=== PATIENT | male | born 1940 | race Caucasian/White ===

== ENCOUNTER 2021-03-16 08:46 | Outpatient (CLI) | payer MEDICARE, SELFPAY ==
--- NOTE | ~2021-03-16 | CT_ITS ---
EXAMINATION: CTA abdomen pelvis DATE: 03/16/2021 09:12 INDICATION: Abdominal aortic aneurysm repair TECHNIQUE: Computed tomography (CT) of the abdomen and pelvis was performed without intravenous contr ast. Automated exposure control and iterative reconstruction technique were employed. Exam dose: 850 .29 mGy-cm total exam DLP. COMPARISON: 03/07/2011 CT abdomen pelvis FINDINGS: There is focal atelectasis/consolidation in the posterior basilar segment of the left lower lobe and mild dependent right lower lobe atelectasis. Normal heart size. No pericardial or pleural effusion. The liver, gallbladder, bile ducts, pancreas, pancreatic duct and spleen are unremarkable. There is normal morphology of the adrenal glands. 1.5 cm lower pole left renal cyst. No urinary tract calculus or hydroureteronephrosis is evident. There is interval endovascular abdominal aorta biiliac graft since 03/07/2011. The abdominal aortic an eurysm measuring up to 4.3 cm compared to 4.6 cm on 03/07/2011. No evidence of abdominal aortic rupture or retroperitoneal fibrosis is noted. No intraperitoneal or retroperitoneal or pelvic mass lesion or adenopathy or ascites. Prostate enlargement and calcifications. There is moderate diffuse thickening of the urinary bladder wall, likely due to prostatomegaly. Innumerable diverticula of the sigmoid and descending colon with involvement of transverse and right colon as well; no CT evidence of diverticulitis. Normal appendix. No bowel obstruction, bowel wall thickening, pneumatosis or intraperitoneal free air. 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 Prominent degenerative change at the apophyseal joints . IMPRESSION: Status post endovascular abdominal aortic aneurysm repair with aortobiiliac graft; no ev idence of abdominal aortic rupture or retroperitoneal fibrosis 1.5 cm lower pole left renal cyst Diverticulosis of left and right colon; no CT evidence of diverticulitis Prostate enlargement and calcifications Focal left posterior basilar segment mild atelectasis/consolidation; minimal dependent atelectasis of the right lower lobe Reviewed, dictated and finalized at [facility] Reviewed, dictated and finalized at [facility]. WARE CLIENT ARCHITECT IMPRESSION: Status post endovascular abdominal aortic aneurysm repair with aor tobiiliac graft; no evidence of abdominal aortic rupture or retroperitoneal fib rosis 1.5 cm lower pole left renal cyst Diverticulosis of left and right colon; no CT evidence of diverticulitis Prostate enlargement and calcifications Focal left posterior basilar segment mild atelectasis/consolidation; minimal de pendent atelectasis of the right lower lobe
== END 2021-03-16 08:47 | disposition home or self-care (01) ==
PROVIDERS: PCP Internal Medicine
DX: I71.4 Abdominal aortic aneurysm, without rupture (principal); Z48.812 Encounter for surgical aftercare following surgery on the circulatory system; N28.1 Cyst of kidney, acquired; K57.30 Diverticulosis of large intestine without perforation or abscess without bleeding; N40.1 Benign prostatic hyperplasia with lower urinary tract symptoms
CPT/HCPCS: 74174; Q9967

== ENCOUNTER 2022-10-17 09:48 | Outpatient (CLI) | payer MEDICARE, SELFPAY ==
[2022-10-17 12:46] LABS: Alanine Aminotransferase 17 U/L (6-50); Albumin Level 4.4 g/dL (3.5-5.1); Alkaline Phosphatase 73 U/L (38-126); Anion Gap 9 mmol/L (8-16); Aspartate Amino Transferase 70 U/L (17-59); Bilirubin,Total 0.7 mg/dL (0.2-1.3); Blood Urea Nitrogen 31 mg/dL (9-20); Calcium 9.4 mg/dL (8.4-10.2); Carbon Dioxide 28 mmol/L (22-30); Chloride 103 mmol/L (98-107); Cholesterol 155 mg/dL (0-200); Estimated Glomerular Filt Rate 41; Glucose 94 mg/dL (65-110); HDL Direct 43 mg/dL; Potassium 4.7 mmol/L (3.4-5.0); Sodium 140 mmol/L (137-145); Triglycerides 108 mg/dL (<150)
[2022-10-17 12:57] LABS: LDL Cholesterol Direct 62 mg/dL
[2022-10-17 13:41] LABS: Hemoglobin A1C 5.5 % (<5.7)
== END 2022-10-17 09:49 | disposition home or self-care (01) ==
LOC: ANHWCLAB 09:49
PROVIDERS: PCP Nurse Practitioner Family; Visit Provider Nurse Practitioner
DX: E78.5 Hyperlipidemia, unspecified (principal); R73.03 Prediabetes
CPT/HCPCS: 36415; 80053; 80061; 83036

== ENCOUNTER 2022-12-17 13:51 | Outpatient (CLI) | payer MEDICARE, SELFPAY ==
--- NOTE | 2022-12-23 16:02 | WPDHOLTEREM ---
Holter/Event Monitor Holter/Event Monitor Date of procedure: 12/17/22 Holter/Event Procedure: 48 Hr Holter Monitor Indications: Dizziness Conclusion: 1. 48 hour holter monitor on 12/17/22. 2. Predominant rhythm is sinus rhythm. HR range 36-82 bpm; average HR 48 bpm. HR at 36 bpm was at 23:21. 3. There are 437 premature supraventricular complexes and 9 supraventricular couplets. There are 3 episodes of atrial tachycardia, fastest at 133 bpm and longest lasting 6 beats. 4. No premature ventricular complexes. No ventricular tachycardia. 5. No sinoatrial or atrioventricular blocks. No significant pauses greater than 2 seconds. 6. No symptoms available for correlation.
== END 2022-12-17 13:52 | disposition home or self-care (01) ==
LOC: ANHCARD 13:52
PROVIDERS: PCP Nurse Practitioner; Visit Provider Nurse Practitioner
DX: R42 Dizziness and giddiness (principal); I48.0 Paroxysmal atrial fibrillation
CPT/HCPCS: 93225; 93226

== ENCOUNTER 2023-04-28 11:27 | Outpatient (CLI) | payer MEDICARE, SELFPAY ==
[2023-04-28 13:02] LABS: Basophils Absolute Auto 0.1 K/mm3 (0.0-0.1); Basophils Percent Auto 0.6 % (0.2-1.2); Eosinophils Absolute Auto 0.1 K/mm3 (0-0.3); Eosinophils Percent Auto 0.8 % (0-4.4); Hematocrit 40.8 % (42.0-52.0); Hemoglobin 12.9 g/dL (14.0-18.0); Immature Granulocyte Absolute 0.02 K/mm3 (0.00-0.031); Immature Granulocyte Percent A 0.2 % (0-0.5); Lymphocytes Absolute Auto 1.45 K/mm3 (0.9-3.2); Lymphocytes Percent Auto 16.9 % (18.3-44.2); Mean Corpuscular HGB Conc 31.6 g/dl (32-36); Mean Corpuscular Hemoglobin 31.7 pg (26-34); Mean Corpuscular Volume 100.2 fl (80-100); Mean Platelet Volume 10.3 fl (7.4-10.4); Monocytes Absolute Auto 0.7 K/mm3 (0.1-0.6); Neutrophils Absolute Auto 6.3 K/mm3 (1.3-6.7); Neutrophils Percent Auto 73.5 % (45.5-73.1); Platelet Count Result 289 k/mm3 (150-375); Red Blood Count 4.07 M/mm3 (4.6-6.20); Red Cell Distribution Width 12.6 % (11.5-14.5); White Blood Count 8.6 K/mm3 (4.5-10.0)
[2023-04-28 13:23] LABS: Alanine Aminotransferase 16 U/L (6-50); Albumin Level 4.7 g/dL (3.5-5.1); Alkaline Phosphatase 80 U/L (38-126); Anion Gap 5 mmol/L (8-16); Aspartate Amino Transferase 44 U/L (17-59); Bilirubin,Total 0.8 mg/dL (0.2-1.3); Blood Urea Nitrogen 32 mg/dL (9-20); Calcium 9.8 mg/dL (8.4-10.2); Carbon Dioxide 28 mmol/L (22-30); Chloride 104 mmol/L (98-107); Cholesterol 141 mg/dL (0-200); Estimated Glomerular Filt Rate 38; Glucose 95 mg/dL (65-110); HDL Direct 48 mg/dL; Potassium 4.5 mmol/L (3.4-5.0); Sodium 137 mmol/L (137-145); Triglycerides 137 mg/dL (<150)
[2023-04-28 13:34] LABS: LDL Cholesterol Direct 56 mg/dL
== END 2023-04-28 11:28 | disposition home or self-care (01) ==
LOC: ANHWCLAB 11:27
PROVIDERS: PCP Nurse Practitioner; Visit Provider Nurse Practitioner Family
DX: E78.5 Hyperlipidemia, unspecified (principal); I48.0 Paroxysmal atrial fibrillation; Z13.220 Encounter for screening for lipoid disorders; I12.9 Hypertensive chronic kidney disease with stage 1 through stage 4 chronic kidney disease, or unspecified chronic kidney disease; N18.30 Chronic kidney disease, stage 3 unspecified
CPT/HCPCS: 36415; 80053; 80061; 85025

== ENCOUNTER 2023-05-27 08:39 | Outpatient (CLI) | payer MEDICARE, SELFPAY ==
--- NOTE | ~2023-05-27 | CT_ITS ---
Non-contrast CT scan of the Abdomen and Pelvis Clinical indication: Abdominal aortic aneurysm Technique: 2.5 mm axial scans were obtained through the abdomen and pelvis without intravenous or or al contrast. Dose reduction technique was used on this scan by utilizing automated exposure control a nd iterative reconstruction technique. The dose-length product (DLP) was 404.67 mGy-cm. COMPARISON: Report only from prior exam dated 03/16/2021 Findings: Images through the lung bases reveal no abnormalities. There is no evidence of renal or ureteral calculi. The kidneys and the ureters are nondilated. The liver, spleen, pancreas, gallbladder, and adrenals appear normal. Abdominal aortic aneurysm measu res up to 4.9 cm in diameter, with aortic stent graft in place.. There is no evidence of bowel obstruction. Images through the pelvis were performed. There is no evidence of ascites or lymphadenopathy. Urinary bladder unremarkable. No pelvic mass seen. Impression: 4.9 cm abdominal aortic aneurysm with aortic stent graft in place. Reviewed, dictated and finalized at [facility]. Impression: 4.9 cm abdominal aortic aneurysm with aortic stent graft in place.
[2023-05-27 09:06] LABS: Estimated Glomerular Filt Rate 29
== END 2023-05-27 08:40 | disposition home or self-care (01) ==
PROVIDERS: PCP Nurse Practitioner
DX: I71.40 Abdominal aortic aneurysm, without rupture, unspecified (principal); Z48.812 Encounter for surgical aftercare following surgery on the circulatory system
CPT/HCPCS: 74176

== ENCOUNTER 2023-11-06 08:21 | Outpatient (CLI) | payer MEDICARE, SELFPAY ==
[2023-11-06 09:20] LABS: Hematocrit 38.9 % (42.0-52.0); Hemoglobin 12.2 g/dL (14.0-18.0); Mean Corpuscular HGB Conc 31.4 g/dl (32-36); Mean Corpuscular Hemoglobin 31.2 pg (26-34); Mean Corpuscular Volume 99.5 fl (80-100); Platelet Count Result 265 k/mm3 (150-375); Red Blood Count 3.91 M/mm3 (4.6-6.20); Red Cell Distribution Width 12.5 % (11.5-14.5); White Blood Count 8.2 K/mm3 (4.5-10.0)
[2023-11-06 09:25] LABS: Alanine Aminotransferase 12 U/L (6-50); Albumin Level 4.5 g/dL (3.5-5.1); Alkaline Phosphatase 73 U/L (38-126); Anion Gap 9 mmol/L (4-12); Aspartate Amino Transferase 26 U/L (17-59); Bilirubin,Total 0.7 mg/dL (0.2-1.3); Blood Urea Nitrogen 30 mg/dL (9-20); Calcium 9.4 mg/dL (8.4-10.2); Carbon Dioxide 27 mmol/L (22-30); Chloride 100 mmol/L (98-107); Cholesterol 134 mg/dL (0-200); Estimated Glomerular Filt Rate 34; Glucose 113 mg/dL (65-110); HDL Direct 51 mg/dL; Potassium 4.3 mmol/L (3.4-5.0); Sodium 136 mmol/L (137-145); Triglycerides 121 mg/dL (<150)
[2023-11-06 09:36] LABS: LDL Cholesterol Direct 42 mg/dL
[2023-11-06 11:52] LABS: Hemoglobin A1C 5.8 % (<5.7)
== END 2023-11-06 08:22 | disposition home or self-care (01) ==
PROVIDERS: PCP Nurse Practitioner; Visit Provider Nurse Practitioner
DX: E78.5 Hyperlipidemia, unspecified (principal); R73.03 Prediabetes; I10 Essential (primary) hypertension
CPT/HCPCS: 36415; 80053; 80061; 83036; 85027

== ENCOUNTER 2024-05-14 08:46 | Outpatient (CLI) | payer MEDICARE, SELFPAY ==
--- OUTSIDE RECORDS SUMMARY | 2024-05-14 09:06 | XMS_ITS | Referral Summary ---
Author Organization [facility] [address] Address [address] [place] [address] Care Team Providers Care Program Clerk Name Role Phone Papi Bradshaw NP Primary Care Provider + [phone] Allergies No known active allergies Medications pravastatin (PRAVACHOL) 80 mg tablet Take 1 tablet by mouth daily. 0 10/28/2016 Active aspirin 81 mg enteric coated tablet Take 81 mg by mouth daily Active cetirizine (ZyrTEC) 10 mg tablet Take 10 mg by mouth daily Active Active Problems Problem Noted Date Diagnosed Date Essential hypertension 12/03/2016 Tobacco abuse 12/03/2016 Chronic anticoagulation 12/03/2016 Diastolic dysfunction without heart failure 11/17 Paroxysmal atrial fibrillation 12/03/2016 Dyslipidemia 12/03/2016 Encounter for surgical after care following surgery of circulatory system 12/12/2015 Abdominal aortic aneurysm without rupture 2014 Social History Tobacco Use Types Packs/Day Years Used Date Smoking Tobacco: Former Cigarettes 0.5 20 Smokeless Tobacco: Never Tobacco Cessation:Counseling Given: Yes Comments:quite 16 months ago Alcohol Use Standard Drinks/Week Comments No 0 (1 standard drink = 0.6 oz pur e alcohol) Personal Safety Answer Date Recorded Getting School Help Needed Not on file 02/14 Sex and Gender Information Value Date Recorded Sex Assigned at Not on file 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 Gender Identity Not on file Sexual Orientation Straight 12/08/2018 10 :24 AM CDT Last Filed Vital Signs Vital Sign Reading Time Taken Comments Blood Pressure 150/85 12/14/2019 10:42 AM CDT Pulse 64 12/14/2019 10:42 AM CDT Temperature 35.9 C (96.7 F) 12/14/2019 10:42 AM CDT Respiratory Rate 16 12/03/2016 3:18 PM CDT Oxygen Saturation 96% 12/14/2019 10:42 AM CDT Inhaled Oxygen Concentration - - Weight 70.6 kg (155 lb 9.6 oz) 12/14/2019 10:42 AM CDT Height 172.7 cm (5' 8 ) 12/14/2019 10:42 AM CDT Body Mass Index 23.66 12/14/2019 10:42 AM CDT Plan of Treatment Not on file Insurance MEDICARE [facility] MEDICARE [facility] MEDICARE [facility] Care Teams Program Clerk Relationship Specialty Start Date End Date Papi Bradshaw NP [address] [place] [address] PCP - General Nurse Practitioner 12/10/22
--- OUTSIDE RECORDS SUMMARY | 2024-05-14 09:06 | XMS_ITS | Clinical Summary ---
Author Organization [facility] [place] [address] Address [address] [place] [address] Care Team Providers Care Yarn Rewinder Name Role Phone Papi Bradshaw NP Primary Care Provider + [phone] Allergies No known active allergies Medications pravastatin [...] 12/12/2015 Abdominal aortic aneurysm without rupture 2014 Medical History Medical History Date Comments Hypertension Diabetes mellitus (HCC) Family History Medical History Relation Name Comments Heart attack Father Cancer Mother Relation Name Status Comments Father Mother Social History Tobacco Use Types Packs/Day Years [...] on file 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 Address: [address] [place] [address] MEDICARE [facility] Care Teams Yarn Rewinder Relationship Specialty Start Date End Date Papi Bradshaw NP [address] [place], [place] [id number] PCP - General Nurse Practitioner 12/10/22
[2024-05-14 10:05] LABS: Alanine Aminotransferase 11 U/L (6-50); Albumin Level 4.4 g/dL (3.5-5.1); Alkaline Phosphatase 72 U/L (38-126); Anion Gap 11 mmol/L (4-12); Aspartate Amino Transferase 23 U/L (17-59); Bilirubin,Total 0.5 mg/dL (0.2-1.3); Blood Urea Nitrogen 40 mg/dL (9-20); Calcium 9.5 mg/dL (8.4-10.2); Carbon Dioxide 25 mmol/L (22-30); Chloride 105 mmol/L (98-107); Cholesterol 137 mg/dL (0-200); Estimated Glomerular Filt Rate 34; Glucose 98 mg/dL (65-110); HDL Direct 51 mg/dL; Potassium 4.7 mmol/L (3.4-5.0); Sodium 141 mmol/L (137-145); Triglycerides 98 mg/dL (<150)
[2024-05-14 10:16] LABS: LDL Cholesterol Direct 44 mg/dL
[2024-05-14 10:17] LABS: Hemoglobin A1C 5.5 % (<5.7)
== END 2024-05-14 08:47 | disposition home or self-care (01) ==
PROVIDERS: PCP Nurse Practitioner; Visit Provider Nurse Practitioner
DX: E78.5 Hyperlipidemia, unspecified (principal); R73.03 Prediabetes
CPT/HCPCS: 36415; 80053; 80061; 83036

== ENCOUNTER 2024-06-26 08:05 | Inpatient (IN) | payer MEDICARE, SELFPAY ==
[2024-06-26] VITALS (38 sets, daily range): BP systolic 51–162; BP diastolic 30–136; PULSE 81–109; RESP 13–27; TEMP 35.9–36.7; O2SAT 81–98; BMI 20.7
--- NOTE | ~2024-06-26 | CT_ITS ---
EXAMINATION: CT abdomen pelvis wo con DATE: 06/26/2024 08:46 INDICATION: Lower abdominal pain TECHNIQUE: Computed tomography (CT) of the abdomen and pelvis was performed without intravenous contr ast. Automated exposure control and iterative reconstruction technique were employed. The dose-length product was 330.74 mGy-cm. COMPARISON: 06/06/2023 FINDINGS: Unchanged elevation of the left hemidiaphragm. Lung bases are clear. Heart size normal. Atherosclerot ic coronary artery calcification. No pericardial or pleural effusion. Liver, gallbladder, spleen, laith ateral adrenal glands are normal. Likely age-related mild bilateral renal atrophy. Tiny atrophy of th e pancreas. There is prominent sigmoid predominant diverticulosis without adjacent inflammatory ronquillo e to suggest diverticulitis. Small bowel and appendix are normal. Bladder is normal. Prostatomegaly m easuring 4.9 x 3.8 cm. Large left retroperitoneal hematoma extending craniocaudally along the anterio r and posterior pararenal spaces and caudally along the left iliac vessels and into a small fat-conta ining left inguinal hernia. This most likely related to rupture of a stented fusiform infrarenal abdo jeanette aortic aneurysm. The aneurysm sac measures up to 5.8 x 4.6 cm which is significantly increased since prior maximal diameters of 5.0 x 4.1 cm. No free intraperitoneal gas or fluid. No pathologicall y enlarged abdominal or pelvic lymphadenopathy. Severe lumbar spondylosis. IMPRESSION: 1. Increase in size of a now 5.8 x 4.6 cm fusiform infrarenal abdominal aortic aneurysm with aortobii liac endoluminal stent grafting. Mild increase in size there is a large left retroperitoneal hematoma which contacts the aneurysm sac which is most consistent with rupture of the aneurysm. Dr. Wheeler discussed these findings with Dr. Crisostomo at 8:50 AM. 2. Diverticulosis. Reviewed, dictated and finalized at location A. IMPRESSION: 1. Increase in size of a now 5.8 x 4.6 cm fusiform infrarenal abdominal aortic aneurysm with aortobiiliac endoluminal stent grafting. Mild increase in size th ere is a large left retroperitoneal hematoma which contacts the aneurysm sac wh ich is most consistent with rupture of the aneurysm. Dr. Wheeler discussed the se findings with Dr. Crisostomo at 8:50 AM. 2. Diverticulosis.
--- NOTE | 2024-06-26 08:17 | ECG_ITS ---
Test Date: 2024-06-26 08:11:44 Measurements Intervals [place] Rate: 91 P: 81 WI: 149 QRS: 16 QRSD: 88 T: 53 QT: 342 QTc: 422 Interpretive Statements SINUS RHYTHM MODERATE ST DEPRESSION [0.05+ mV ST DEPRESSION] No previous ECG available for comparison Electronically Signed On 06-26-2024 15:37:06 CDT by Mansi Urban M.D.
--- NOTE | 2024-06-26 08:17 | ED.GENADULT ---
HPI - General Adult General Chief complaint: Syncope Stated complaint: syncope Time Seen by Provider: 06/26/24 08:16 Source: patient and EMS Mode of arrival: EMS Limitations: no limitations History of Present Illness HPI narrative: 84 years old white male came from home by ambulance, because of lower abdominal pain started this morning associated with nausea, diaphoresis and possible blacking out. Ambulance arrived, patient was unresponsive, arouse by painful stimulation,. In the ED patient main complaint lower abdominal pain and feeling like is going to have a bowel movement. History of atrial fibrillation, triple a repaired 5 years ago,. No family member at the bedside. Related Data Home Medications ?Medication ?Instructions ?Recorded ?Confirmed ?Last Taken ?Type cetirizine 10 mg capsule (Zyrtec) 10 mg PO DAILY 05/25/24 05/25/24 Unknown History Allergies Allergy/AdvReac Type Severity Reaction Status Date / Time No Known Allergies Allergy Verified 06/26/24 08:56 Review of Systems Review of Systems: ROS unobtainable: Yes unobtainable due to medical condition PMFSH Past Medical History Medical History Screening for colon cancer Elevated serum creatinine Family History Family History Mother Family history of primary malignant neoplasm of liver Father Patient's father is Acute myocardial infarction Social History Social History Smoking packs per day: 1 Smoking cigarettes per day: 20.0 Years smoked: 50 Smoking pack-years: 50.00 Smoking status: Former smoker Smoking end date: 02/18/16 Alcohol intake: former Alcohol use details: social Substance use: never Substance use type: does not use Do You Feel Safe in your Home?: Yes Lack of Transportation: No Lack of Food: Never True Current Housing: I Have Housing Concerned About Future Housing: No Difficulty Paying Gas/Electric Bills: No Difficulty Paying for Meds: No Currently Unemployed: No Education: High School Diploma/GED Difficulty w/ Childcare or Family Care: No Exam Narrative: General appearance: Well-developed, well-nourished, in pain Skin: Pale, diaphoretic Head: Normocephalic, nontraumatic Eyes: Clear conjunctiva ENT: Oropharynx normal, ears normal, nose normal Neck: Supple, nontender Chest and respiratory: Airway patent, no respiratory distress, no accessory muscle use Heart: Regular rate/rhythm Abdomen: Soft, lower abdominal tenderness,, no organomegaly, quiet bowel sounds Vascular: Normal peripheral pulses, normal capillary refill. Musculoskeletal: Normal range of motion, nontender back Neurologic: Alert and oriented ?3, OUTBOARD MOTOR INSPECTOR is normal as tested, no gross motor deficit Course Consultations Consultation #1: , vascular surgeon at [facility] Report that patient is not a candidate for surgery or medical intervention at this time and if he decided to come to [facility] will be for discussion only. Date: 06/26/24 Consultation #2: Dr. Cantu, emergency room physician at [facility] accepted patient transfer Date: 06/26/24 Vital Signs Vital signs: Vital Signs Pulse Rate 98 06/26/24 08:06 Respiratory Rate 20 06/26/24 08:06 Blood Pressure 75/62 L 06/26/24 08:06 Pulse Oximetry 93 06/26/24 08:06 Oxygen Delivery Room Air 06/26/24 08:06 Temperature 36.4 C 06/26/24 09:00 Pulse Rate 100 06/26/24 09:11 Respiratory Rate 24 H 06/26/24 09:11 Blood Pressure 121/66 06/26/24 09:11 Pulse Oximetry 98 06/26/24 09:00 Oxygen Delivery Room Air 06/26/24 08:56 Medical Decision Making [facility] Narrative Medical decision making narrative: Patient came with lower abdominal pain, diaphoretic, pale, low blood pressure Vital signs on arrival showing blood pressure 75/62, heart rate 98, respiration 20, saturation 93 on room air Physical examination showing diaphoretic pale patient in pain and would like to have a bowel movement right now. Patient started having massive diarrhea, offensive odor. Differential diagnosis include ischemic colitis, I aortic aneurysm/dissection, diverticulitis, C diff, dehydration, electrolyte imbalance, Blood workup today includes CBC, CMP, lactic acid, coags showed Urinalysis showed CT abdomen and pelvis with IV contrast showed ruptured aortic annular , vascular surgeon at [facility] reports patient is not a surgical candidate. And to tell the patient that no surgery will be done if he go to [facility] at this time. The visit only for discussion and no surgical or medical intervention can be done for his condition. The patient and his decided to not to go to [facility] and would be okay to stay in our facility until he pass. Differential Diagnosis Differential Diagnosis: As above Vital Signs Vital Signs: Vital Signs Pulse Rate 98 06/26/24 08:06 Respiratory Rate 20 06/26/24 08:06 Blood Pressure 75/62 L 06/26/24 08:06 Pulse Oximetry 93 06/26/24 08:06 Oxygen Delivery Room Air 06/26/24 08:06 Temperature 36.4 C 06/26/24 09:00 Pulse Rate 100 06/26/24 09:11 Respiratory Rate 24 H 06/26/24 09:11 Blood Pressure 121/66 06/26/24 09:11 Pulse Oximetry 98 06/26/24 09:00 Oxygen Delivery Room Air 06/26/24 08:56 Lab Data 06/26/24 08:28 06/26/24 08:39 Labs: Lab Results 06/26/24 06/26/24 Range/Units 08:28 08:39 WBC 10.0 (4.5-10.0) K/mm3 RBC 3.26 L (4.6-6.20) M/mm3 Hgb 9.9 L (14.0-18.0) g/dL Hct 32.6 L (42.0-52.0) % MCV 100.0 (80-100) fl MCH 30.4 (26-34) pg MCHC 30.4 L (32-36) g/dl RDW 12.7 (11.5-14.5) % Plt Count 202 (150-375) k/mm3 MPV 10.3 (7.4-10.4) fl Immature Gran % (Auto) 0.8 H (0-0.5) % Neut % (Auto) 60.3 (45.5-73.1) % Lymph % (Auto) 27.8 (18.3-44.2) % Bacon % (Auto) 8.7 H (2.6-8.5) % Eos % (Auto) 1.9 (0-4.4) % Baso % (Auto) 0.5 (0.2-1.2) % Lymph # (Auto) 2.79 (0.9-3.2) K/mm3 Bacon # (Auto) 0.9 H (0.1-0.6) K/mm3 Eos # (Auto) 0.2 (0-0.3) K/mm3 Baso # (Auto) 0.1 (0.0-0.1) K/mm3 Abs Immat Gran (auto) 0.08 H (0.00-0.031) K/mm3 Absolute Neuts (auto) 6.1 (1.3-6.7) K/mm3 Absolute Nucleated RBC 0.000 (0.0-0.012) K/mm3 Nucleated RBC % 0.0 (0.0-0.2) % PT 16.1 H (11.1-14.7) Seconds INR 1.2 APTT 29.4 (22.3-36.8) Seconds Sodium 137 (137-145) mmol/L Potassium 4.3 (3.4-5.0) mmol/L Chloride 106 (98-107) mmol/L Carbon Dioxide 20 L (22-30) mmol/L Anion Gap 11 (4-12) mmol/L BUN 34 H (9-20) mg/dL Creatinine 1.86 H 2.20 H (0.7-1.3) mg/dL Estim Creat Clear Calc 24 21 ml/min Estimated GFR 35 L 29 L (59 - ) Glucose 227 H (65-110) mg/dL Lactic Acid 4.7 H* (0.7-2.0) mmol/L Calcium 8.4 (8.4-10.2) mg/dL Total Bilirubin 0.5 (0.2-1.3) mg/dL AST 24 (17-59) U/L ALT 15 (6-50) U/L Alkaline Phosphatase 69 (38-126) U/L Total Protein 6.0 L (6.3-8.2) g/dL Albumin 3.6 (3.5-5.1) g/dL Lipase 87 (23-300) U/L Critical Care Time Critical Care Time Critical Care Time: Yes Total Critical Care Time: 45 Discharge Plan Discharge Clinical Impression: Abdominal aneurysm, ruptured Patient Language: Belarusian Prescriptions: No Action Zyrtec 10 mg capsule 10 mg PO DAILY apixaban 2.5 mg tablet 2.5 mg tablet 0RF Eliquis 2.5 mg tablet See Rx Instructions .ROUTE .COMPLEX Qty: 60 5RF Dose Instruction: TAKE ONE TABLET BY MOUTH TWICE A DAY Rx Instructions: TAKE ONE TABLET BY MOUTH TWICE A DAY pravastatin 80 mg tablet See Rx Instructions .ROUTE .COMPLEX Qty: 90 1RF Dose Instruction: TAKE ONE TABLET BY MOUTH DAILY Rx Instructions: TAKE ONE TABLET BY MOUTH DAILY Follow-up/Referrals: Papi Bradshaw APRN [Primary Care Provider] -
--- OUTSIDE RECORDS SUMMARY | 2024-06-26 08:26 | XMS_ITS | Clinical Summary ---
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
--- OUTSIDE RECORDS SUMMARY | 2024-06-26 08:26 | XMS_ITS | Referral Summary ---
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
[2024-06-26] MEDS: SODIUM CHLORIDE 0.9% IV 2,000 ML 999 ML IV CONT (08:27)
[2024-06-26 08:35] LABS: Basophils Absolute Auto 0.1 K/mm3 (0.0-0.1); Basophils Percent Auto 0.5 % (0.2-1.2); Eosinophils Absolute Auto 0.2 K/mm3 (0-0.3); Eosinophils Percent Auto 1.9 % (0-4.4); Hematocrit 32.6 % (42.0-52.0); Hemoglobin 9.9 g/dL (14.0-18.0); Immature Granulocyte Absolute 0.08 K/mm3 (0.00-0.031); Immature Granulocyte Percent A 0.8 % (0-0.5); Lymphocytes Absolute Auto 2.79 K/mm3 (0.9-3.2); Lymphocytes Percent Auto 27.8 % (18.3-44.2); Mean Corpuscular HGB Conc 30.4 g/dl (32-36); Mean Corpuscular Hemoglobin 30.4 pg (26-34); Mean Platelet Volume 10.3 fl (7.4-10.4); Monocytes Absolute Auto 0.9 K/mm3 (0.1-0.6); Monocytes Percent Auto 8.7 % (2.6-8.5); Neutrophils Absolute Auto 6.1 K/mm3 (1.3-6.7); Neutrophils Percent Auto 60.3 % (45.5-73.1); Platelet Count Result 202 k/mm3 (150-375); Red Blood Count 3.26 M/mm3 (4.6-6.20); Red Cell Distribution Width 12.7 % (11.5-14.5)
[2024-06-26 08:44] LABS: Alanine Aminotransferase 15 U/L (6-50); Albumin Level 3.6 g/dL (3.5-5.1); Alkaline Phosphatase 69 U/L (38-126); Anion Gap 11 mmol/L (4-12); Aspartate Amino Transferase 24 U/L (17-59); Bilirubin,Total 0.5 mg/dL (0.2-1.3); Blood Urea Nitrogen 34 mg/dL (9-20); Calcium 8.4 mg/dL (8.4-10.2); Carbon Dioxide 20 mmol/L (22-30); Chloride 106 mmol/L (98-107); Estimated CRCL calculation 24 ml/min; Estimated Glomerular Filt Rate 35; Glucose 227 mg/dL (65-110); Lipase 87 U/L (23-300); Potassium 4.3 mmol/L (3.4-5.0); Sodium 137 mmol/L (137-145)
[2024-06-26 08:47] LABS: Lactic Acid Reflex 4.7 mmol/L (0.7-2.0)
[2024-06-26 08:50] LABS: Estimated CRCL calculation 21 ml/min; Estimated Glomerular Filt Rate 29
[2024-06-26 08:52] LABS: INR 1.2; Prothrombin Time 16.1 Seconds (11.1-14.7)
[2024-06-26 08:53] LABS: Partial Thromboplastin Time 29.4 Seconds (22.3-36.8)
--- NOTE | 2024-06-26 09:24 | PC.NURSE ---
EDP gave verbal order for 4mg of Zofran and 4mg of morphine
[2024-06-26] MEDS: ONDANSETRON INJ 4 MG/2 ML VIAL (09:29)
[2024-06-26] MEDS: MORPHINE SULFATE (*CRX) 4 MG/ML INJ (09:29)
[2024-06-26] MEDS: ONDANSETRON INJ 4 MG/2 ML VIAL IV PUSH ×2 (10:16→11:14)
[2024-06-26] MEDS: MORPHINE SULFATE (*CRX) 4 MG/ML INJ IV PUSH ×3 (10:16→19:46)
[2024-06-26 10:33] LABS: Reflex Lactic Acid Yes or No Add Lactic
--- NOTE | 2024-06-26 11:05 | PC.NURSE ---
per EDP, Dr. Crisostomo, pt can have 4mg of Zofran and 4mg of morphine PRN Q15 minuets
[2024-06-26] MEDS: LORazepam INJ (*CRX) 2 MG/ML VIAL 1 MG IV PUSH (12:12)
--- NOTE | 2024-06-26 13:42 | ADMGEN ---
This patient, Cecelia Hitchcock, was admitted to 3 [facility] Surg Room 311-01. Patient/family oriented to hospital policies and general routines including ID bracelet, bed and alarms, visiting hours, pain management, procedures, bathroom and other care routines, personal items, smoking policy, room service/diet, and visiting hours. Information on how to activate the Rapid Response Team has been discussed. Patient/Family are encouraged to report perceived risks to care and to ask questions if they do not understand what they are told or what they should do.
--- NOTE | 2024-06-26 14:23 | PM.IMHP ---
H&P: HPI History of Present Illness Date/Time: 06/26/24 14:23 Chief Complaint: Back Pain/Abdominal Pain, Unresponsive Episode Narrative: 84 y/o M with PMH of AAA s/p repair, atrial fibrillation, kidney stones, and arthritis presents here with sudden onset back pain/abdominal pain and an unresponsive episode. The patient presents here from home via EMS on 06/26 for further evaluation of sudden onset back pain and abdominal pain. HPI obtained through patient's spouse's report, EMS report, and chart review. EMS reported to ED staff that when they arrived on scene, the patient was unresponsive and did eventually respond to a sternal rub. A&O x4 once alert, arrived A&O x3. The patient reports the unresponsive episode was preceded by sudden onset back pain and abdominal pain. He describes this as pressure. He has a history of a AAA w/repair in 2019. Patient now minimally responsive and unable to contribute to HPI. Initial VS at presentation: To 97.6? F, HR 98, R 20, 175/62, and 93% on RA. ED workup showed: No leukocytosis, hemoglobin 9.9, INR 1.2, creatinine 2.2, GFR 29, lactic 4.7. CT of the abdomen/pelvis showed an increase in size of the now 5.854.6 fusiform infrarenal abdominal aortic aneurysm with aortobiiliac endoluminal stent grafting, mild increase in the size there is a large left retroperitoneal hematoma which contacts the aneurysm sac which is most consistent with rupture of the aneurysm, and diverticulosis. Review of Systems Review of Systems: All systems reviewed & are unremarkable except as noted in HPI and below PMFSH Past Medical History Medical History Abdominal aortic aneurysm Prediabetes A1c 5.5% on 05/14/2024 CKD (chronic kidney disease), stage III Hyperlipidemia Benign essential hypertension Paroxysmal atrial fibrillation Screening for colon cancer Elevated serum creatinine Surgical History Surgical History History of AAA (abdominal aortic aneurysm) repair Family History Family History Mother Family history of primary malignant neoplasm of liver Father Patient's father is Acute myocardial infarction Social History Social History Smoking packs per day: 1 Smoking cigarettes per day: 20.0 Years smoked: 50 Smoking pack-years: 50.00 Smoking status: Former smoker Alcohol intake: former Alcohol use details: social Substance use: never Substance use type: does not use Do You Feel Safe in your Home?: Yes Lack of Transportation: No Lack of Food: Never True Current Housing: I Have Housing Concerned About Future Housing: No Difficulty Paying Gas/Electric Bills: No Difficulty Paying for Meds: No Currently Unemployed: No Education: High School Diploma/GED Difficulty w/ Childcare or Family Care: No Spiritual care concerns: No Meds Home Medications and Allergies Home Medications ?Medication ?Instructions ?Recorded ?Confirmed ?Type apixaban 2.5 mg tablet (Eliquis) See Rx Instructions .Route 12/30/23 06/26/24 Rx .COMPLEX #60 tabs pravastatin 80 mg tablet See Rx Instructions .Route 04/13/24 06/26/24 Rx .COMPLEX #90 tabs cetirizine 10 mg capsule (Zyrtec) 10 mg PO DAILY 05/25/24 06/26/24 History Allergies Allergy/AdvReac Type Severity Reaction Status Date / Time No Known Allergies Allergy Verified 06/26/24 08:56 Vital Signs Vital Signs - 24 hr 06/26/24 08:06 06/26/24 08:16 06/26/24 08:19 Temperature Pulse Rate 98 100 97 Respiratory Rate 20 16 20 Blood Pressure 75/62 L 80/48 L Pulse Oximetry 93 Oxygen Delivery Room Air 06/26/24 08:29 06/26/24 08:48 06/26/24 08:50 Temperature Pulse Rate 100 101 H Respiratory Rate 21 H 25 H Blood Pressure 89/74 L 162/132 H Pulse Oximetry Oxygen Delivery 06/26/24 08:51 06/26/24 08:54 06/26/24 08:55 Temperature Pulse Rate 100 96 96 Respiratory Rate 21 H 19 Blood Pressure 161/136 H Pulse Oximetry Oxygen Delivery 06/26/24 08:56 06/26/24 08:56 06/26/24 08:57 Temperature Pulse Rate 94 93 Respiratory Rate 17 16 Blood Pressure 100/63 Pulse Oximetry 96 97 Oxygen Delivery Room Air 06/26/24 08:58 06/26/24 09:00 06/26/24 09:01 Temperature 97.6 F Pulse Rate 94 96 94 Respiratory Rate 21 H 19 24 H Blood Pressure 111/80 144/77 H Pulse Oximetry 98 Oxygen Delivery 06/26/24 09:06 06/26/24 09:11 06/26/24 09:20 Temperature Pulse Rate 93 100 103 H Respiratory Rate 20 24 H 13 Blood Pressure 135/35 L 121/66 136/96 H Pulse Oximetry Oxygen Delivery 06/26/24 09:21 06/26/24 09:30 06/26/24 09:31 Temperature Pulse Rate 105 H Respiratory Rate 23 H Blood Pressure 80/52 L 68/45 L Pulse Oximetry Oxygen Delivery 06/26/24 09:34 06/26/24 09:36 06/26/24 09:40 Temperature Pulse Rate 107 H 104 H 108 H Respiratory Rate 19 18 19 Blood Pressure 93/46 L 68/39 L Pulse Oximetry Oxygen Delivery 06/26/24 09:45 06/26/24 09:50 06/26/24 09:55 Temperature Pulse Rate 109 H 108 H 109 H Respiratory Rate 16 15 15 Blood Pressure 60/39 L 62/43 L 61/38 L Pulse Oximetry Oxygen Delivery 06/26/24 10:00 06/26/24 10:05 06/26/24 10:11 Temperature Pulse Rate 101 H 106 H 104 H Respiratory Rate 17 17 20 Blood Pressure 71/31 L 53/41 L 51/42 L Pulse Oximetry Oxygen Delivery 06/26/24 10:15 06/26/24 10:20 06/26/24 10:30 Temperature Pulse Rate 107 H 103 H 103 H Respiratory Rate 27 H 14 22 H Blood Pressure 68/46 L 62/42 L 67/41 L Pulse Oximetry Oxygen Delivery 06/26/24 10:45 06/26/24 11:45 06/26/24 12:12 Temperature Pulse Rate 102 H 98 107 H Respiratory Rate 16 19 17 Blood Pressure 56/43 L 59/37 L 69/44 L Pulse Oximetry 94 Oxygen Delivery 06/26/24 12:17 Temperature Pulse Rate 94 Respiratory Rate 16 Blood Pressure 67/42 L Pulse Oximetry Oxygen Delivery Exam Const: General: comfortable and no acute distress Other: Elderly, male, ill-appearing, no distress HENMT: Face/Nose/Sinus: Normal nares present Mouth: Yes moist mucous membranes Eyes: General: appearance normal, both eyes and all related structures Sclera: sclerae normal Pupils: Equal, round and reactive pupils present EOM: EOMs intact bilaterally Resp: Effort & Inspection: normal respiratory effort Auscultation: clear to auscultation bilaterally Cardio: Rate: regular rate Rhythm: regular rhythm Other: S1-S2 present without murmur, rub, ectopy GI: Other: No grimace or breathlessness with palpation. Normoactive to hypoactive bowel sounds in all quadrants. Currently nondistended. Skin: General skin exam: no rashes or lesions noted Wounds: no wounds Other: Mild pallor. Neuro: Other: Intermittent brief awakenings. Currently not opening his eyes or verbally responding. Forewent noxious stimuli as this will not change his clinical course. Extrem: General: normal to inspection Psych: Other: Unable to assess. H&P: Results Labs Labs: Short CBC 06/26/24 Range/Units 08:28 WBC 10.0 (4.5-10.0) K/mm3 Hgb 9.9 L (14.0-18.0) g/dL Hct 32.6 L (42.0-52.0) % Plt Count 202 (150-375) k/mm3 BMP 06/26/24 06/26/24 08:28 08:39 Sodium 137 Potassium 4.3 Chloride 106 Carbon Dioxide 20 L BUN 34 H Creatinine 1.86 H 2.20 H Glucose 227 H Calcium 8.4 Liver Function 06/26/24 Range/Units 08:28 Total Bilirubin 0.5 (0.2-1.3) mg/dL AST 24 (17-59) U/L ALT 15 (6-50) U/L Alkaline Phosphatase 69 (38-126) U/L Albumin 3.6 (3.5-5.1) g/dL Assessment and Plan Assessment and plan (1) Abdominal aneurysm, ruptured: Qualifiers: Abdominal aorta location: infrarenal aorta Qualified Code(s): I71.33 - Infrarenal abdominal aortic aneurysm, ruptured Code(s): I71.30 - Abdominal aortic aneurysm, ruptured, unspecified Status: Acute Assessment and Plan: - CT abdomen/pelvis, 06/26: 1. Increase in size of a now 5.8 x 4.6 cm fusiform infrarenal abdominal aortic aneurysm with aortobiiliac endoluminal stent grafting. Mild increase in size there is a large left retroperitoneal hematoma which contacts the aneurysm sac which is most consistent with rupture of the aneurysm. Dr. Wheeler discussed these findings with Dr. Crisostomo at 8:50 AM. 2. Diverticulosis. - ED provider spoke with on-call vascular surgeon at [facility], Yovany DOBBS, who reviewed the patient's imaging and reported he is not a candidate for surgery or medical intervention. - Patient is discussed plan of care and elected to remain at [facility] for comfort care measures. - Comfort care measures ordered: Ativan, atropine SL, morphine, Zofran. Labs and medications discontinued. - Family has no additional concerns or measures they would like to take at this time. Plan Diet: NPO except ice chips GI Prophylaxis: Not currently indicated DVT Prophylaxis: Not currently indicated IV fluids: Not currently indicated Lines/Tubes: Peripheral IV Code Status: DNR, comfort measures Quality If No VTE Prophylaxis Answer both mechanical and pharmacologic: Reason no mechanical VTE proph: low risk/not indicated Reason no pharmacologic proph: low risk/not indicated Hospitalist MIPS Advance Care Plan I have confirmed that the patient's Advanced Care Plan is present, code status is documented, or surrogate decision maker is listed in patient medical record.: Yes Medication Reconciliation I have utilized all available resources to obtain, update and review the patients current medications (includes all prescriptions, OTC, herbals, cannabis, and nutritional supplements).: Yes
[2024-06-27] MEDS: MORPHINE SULFATE (*CRX) 4 MG/ML INJ IV PUSH ×2 (02:52→11:42)
--- NOTE | 2024-06-27 10:54 | P.PNIM_ITS ---
Progress Note: A&P Assessment and Plan (1) Abdominal aneurysm, ruptured: Qualifiers: Abdominal aorta location: infrarenal aorta Qualified Code(s): I71.33 - Infrarenal abdominal aortic aneurysm, ruptured Code(s): I71.30 - Abdominal aortic aneurysm, ruptured, unspecified Status: Acute Assessment and Plan: - CT abdomen/pelvis, 06/26: 1. Increase in size of a now 5.8 x 4.6 cm fusiform infrarenal abdominal aortic aneurysm with aortobiiliac endoluminal stent grafting. Mild increase in size there is a large left retroperitoneal hematoma which contacts the aneurysm sac which is most consistent with rupture of the aneurysm. Dr. Wheeler discussed these findings with Dr. Crisostomo at 8:50 AM. 2. Diverticulosis. - ED provider spoke with on-call vascular surgeon at [facility], Yovany DOBBS, who reviewed the patient's imaging and reported he is not a candidate for surgery or medical intervention. - Patient is discussed plan of care and elected to remain at [place] [facility] for comfort care measures. - Comfort care measures ordered: Ativan, atropine SL, morphine, Zofran. Labs and medications discontinued. - Family has no additional concerns or measures they would like to take at this time. supportive measures care coordination consult for comfort/hospice Plan Diet: NPO except ice chips GI Prophylaxis: Not currently indicated DVT Prophylaxis: Not currently indicated IV fluids: Not currently indicated Lines/Tubes: Peripheral IV Code Status: DNR, comfort measures Time Spent With Patient Time with patient: 25 - 35 minutes Subjective Date/time seen: 06/27/24 10:54 Interval history: 84 y/o M with PMH of AAA s/p repair, atrial fibrillation, kidney stones, and arthritis presents here with sudden onset back pain/abdominal pain and an unresponsive episode. CT of the abdomen/pelvis showed an increase in size of the now 5.854.6 fusiform infrarenal abdominal aortic aneurysm with aortobiiliac endoluminal stent grafting, mild increase in the size there is a large left retroperitoneal hematoma which contacts the aneurysm sac which is most consistent with rupture of the aneurysm, and diverticulosis. [facility] will not accept pt as there is no surgical intervention they can offer. After discussion with ED and admitting provider, family chose to proceed with comfort/hospice measures. Care coordination consulted. Review of Systems Review of Systems: All systems reviewed & are unremarkable except as noted in HPI and below Exam Const: General: comfortable and no acute distress Other: Elderly, male, ill-appearing, no distress, not interacting HENMT: Face/Nose/Sinus: Normal nares present Mouth: Yes moist mucous membranes Eyes: General: appearance normal, both eyes and all related structures Sclera: sclerae normal Pupils: Equal, round and reactive pupils present E OM: EOMs intact bilaterally Resp: Effort & Inspection: normal respiratory effort Auscultation: clear to auscultation bilaterally Cardio: Rate: regular rate Rhythm: regular rhythm Other: S1-S2 present without murmur, rub, ectopy GI: GI Palp: Yes Soft to palpation Other: No grimace or breathlessness with palpation. Normoactive to hypoactive bowel sounds in all quadrants. Currently nondistended. Skin: General skin exam: no rashes or lesions noted Wounds: no wounds Other: Mild pallor. Neuro: Cranial nerves: Yes Equal, round and reactive pupils present Other: Intermittent brief awakenings. Currently not opening his eyes or verbally responding. Extrem: General: normal to inspection Psych: Other: Unable to assess. Objective Data Vital Signs Vital Signs: Vital Signs - 24 hr 06/26/24 11:45 06/26/24 12:12 06/26/24 12:17 Temperature Pulse Rate 98 107 H 94 Respiratory Rate 19 17 16 Blood Pressure 59/37 L 69/44 L 67/42 L Pulse Oximetry 94 Oxygen Delivery 06/26/24 13:36 06/26/24 15:37 06/26/24 22:00 Temperature 98.0 F 96.7 F L Pulse Rate 81 Respiratory Rate 18 16 Blood Pressure 70/30 L 57/41 L Pulse Oximetry 81 L Oxygen Delivery Room Air Intake/Output Intake/Output: Intake & Output 06/24/24 06/25/24 06/26/24 06/27/24 23:59 23:59 23:59 23:59 Intake Total 1999 0 Balance 1999 0 Meds/Results Medications: Active Medications Generic Name Dose Route Start Last Admin Trade Name Freq PRN Reason Stop Dose Admin Atropine Sulfate 1 drop 06/26/24 14:38 Atropine Sulfate 1% Ophth Soln 5 Ml Bottle SUBLINGUAL Q4H PRN Secretions Lorazepam 1 mg 06/26/24 11:05 Lorazepam Inj (*Crx) 2 Mg/Ml Vial IV PUSH Q2H PRN Anxiety/Comfort Morphine Sulfate 4 mg 06/26/24 11:03 06/27/24 02:52 Morphine Sulfate (*Crx) 4 Mg/Ml Inj IV PUSH 4 mg Q1H PRN Administration Pain Rated 7-10 Ondansetron HCl 4 mg 06/26/24 11:03 06/26/24 11:14 Ondansetron Inj 4 Mg/2 Ml Vial IV PUSH 4 mg Q4H PRN Administration Nausea Radiology Results: ITS Impressions Abdomen/Pelvis CT 06/26/24 08:48 IMPRESSION: 1. Increase in size of a now 5.8 x 4.6 cm fusiform infrarenal abdominal aortic aneurysm with aortobiiliac endoluminal stent grafting. Mild increase in size there is a large left retroperitoneal hematoma which contacts the aneurysm sac which is most consistent with rupture of the aneurysm. Dr. Wheeler discussed these findings with Dr. Crisostomo at 8:50 AM. 2. Diverticulosis.
--- NOTE | 2024-06-28 09:16 | PM.DS ---
DS: Admitting Diagnosis Discharge Date 06/27/24 Admitting Diagnosis syncope DS: Discharge Diagnosis Discharge Diagnosis (1) Abdominal aneurysm, ruptured: Qualifiers: Abdominal aorta location: infrarenal aorta Qualified Code(s): I71.33 - Infrarenal abdominal aortic aneurysm, ruptured Code(s): I71.30 - Abdominal aortic aneurysm, ruptured, unspecified Status: Acute DS: Summary Hospital Course Hospital Course: 84 y/o M with PMH of AAA s/p repair, atrial fibrillation, kidney stones, and arthritis presents here with sudden onset back pain/abdominal pain and an unresponsive episode. CT of the abdomen/pelvis showed an increase in size of the now 5.854.6 fusiform infrarenal abdominal aortic aneurysm with aortobiiliac endoluminal stent grafting, mild increase in the size there is a large left retroperitoneal hematoma which contacts the aneurysm sac which is most consistent with rupture of the aneurysm, and diverticulosis. [facility] will not accept pt as there is no surgical intervention they can offer. After discussion with ED and admitting provider, family chose to proceed with comfort/hospice measures. Care coordination consulted. - CT abdomen/pelvis, 06/26: 1. Increase in size of a now 5.8 x 4.6 cm fusiform infrarenal abdominal aortic aneurysm with aortobiiliac endoluminal stent grafting. Mild increase in size there is a large left retroperitoneal hematoma which contacts the aneurysm sac which is most consistent with rupture of the aneurysm. Dr. Wheeler discussed these findings with Dr. Crisostomo at 8:50 AM. 2. Diverticulosis. - ED provider spoke with on-call vascular surgeon at [facility], Yovany DOBBS, who reviewed the patient's imaging and reported he is not a candidate for surgery or medical intervention. - Patient is discussed plan of care and elected to remain at [facility] for comfort care measures. - Comfort care measures ordered: Ativan, atropine SL, morphine, Zofran. Labs and medications discontinued. - Family has no additional concerns or measures they would like to take at this time. supportive measures care coordination consult for comfort/hospice Status at Discharge Functional status at discharge: bed bound Overall status at discharge: patient is not back to baseline Time Spent with Patient Time attestation: Total time spent providing and/or coordinating discharge services: Time spent: Less than 30 minutes Exam Const: General: comfortable and no acute distress Other: Elderly, male, ill-appearing, no distress, not interacting HENMT: Face/Nose/Sinus: Normal nares present Mouth: Yes moist mucous membranes Eyes: General: appearance normal, both eyes and all related structures Sclera: sclerae normal Pupils: Equal, round and reactive pupils present EOM: EOMs intact bilaterally Resp: Effort & Inspection: normal respiratory effort Auscultation: clear to auscultation bilaterally Cardio: Rate: regular rate Rhythm: regular rhythm Other: S1-S2 present without murmur, rub, ectopy GI: Other: No grimace or breathlessness with palpation. Normoactive to hypoactive bowel sounds in all quadrants. Currently nondistended. Skin: General skin exam: no rashes or lesions noted Wounds: no wounds Other: Mild pallor. Neuro: Cranial nerves: Yes Equal, round and reactive pupils present Other: Intermittent brief awakenings. Currently not opening his eyes or verbally responding. Extrem: General: normal to inspection Psych: Other: Unable to assess. Discharge Plan Discharge Attending physician on discharge: Dante Walker Discharging Clinician: Candida Rinaldi Patient Disposition: Hospice - Medical Facility Activity: june shower Diet: as tolerated and other - see discharge instructions Patient Language: Turkmen Discharge Medications: Discontinued Zyrtec 10 mg capsule 10 mg PO DAILY Eliquis 2.5 mg tablet See Rx Instructions .ROUTE .COMPLEX Qty: 60 5RF Dose Instruction: TAKE ONE TABLET BY MOUTH TWICE A DAY Rx Instructions: TAKE ONE TABLET BY MOUTH TWICE A DAY pravastatin 80 mg tablet See Rx Instructions .ROUTE .COMPLEX Qty: 90 1RF Dose Instruction: TAKE ONE TABLET BY MOUTH DAILY Rx Instructions: TAKE ONE TABLET BY MOUTH DAILY Date of admission: 06/26/24 14:47 Primary Care Provider: Papi Bradshaw Admitting Provider: Dante Walker Attending physician on admission: Dante Walker Condition: Guarded Prognosis Hospitalist MIPS Heart Failure (Exclusion) Patient has history of Heart Transplant or Left Ventricular Assistive Device?: No IF YES, STOP HERE Heart Failure (Qualifier) Patient has current or prior documentation of LVEF less than or equal to 40%, or mod/servere depressed LVSF?: No IF NO, STOP HERE
== END 2024-06-27 15:45 | disposition hospice, inpatient (51) | DRG 301 ==
LOC: ANHED 08:24 → ANH3MEDSUR 12:52
PROVIDERS: Admitting Provider General Practice; Emergency Provider Emergency Medicine; PCP Nurse Practitioner; Visit Provider Nurse Practitioner
DX: I71.33 Infrarenal abdominal aortic aneurysm, ruptured (principal); I12.9 Hypertensive chronic kidney disease with stage 1 through stage 4 chronic kidney disease, or unspecified chronic kidney disease; I48.0 Paroxysmal atrial fibrillation; N18.30 Chronic kidney disease, stage 3 unspecified; K57.90 Diverticulosis of intestine, part unspecified, without perforation or abscess without bleeding; M19.90 Unspecified osteoarthritis, unspecified site; Z87.891 Personal history of nicotine dependence; Z79.01 Long term (current) use of anticoagulants; Z66 Do not resuscitate
CPT/HCPCS: 36415; 74176; 80053; 83605; 83690; 85025; 85610; 85730; 93005; 96361; 96374; 96375; 96376; 99285; A9270; G0378; J2060; J2270; J2405; J7030

== ENCOUNTER 2024-06-27 15:46 | HOS | payer OTHER, MEDICARE, SELFPAY ==
[2024-06-27 16:04] VITALS: BMI 20.7
--- OUTSIDE RECORDS SUMMARY | 2024-06-27 16:09 | XMS_ITS | Encounter Summary ---
Author Organization [facility] Healthcare Address [address] [place] [address] Care Team Providers Care Timber Cruiser Name Role Phone Papi Bradshaw NP Primary Care Provider + [phone] Encounter Details Date Type Department Care Team (Late st Contact Info) Description 06/26/2024 - 06/26/2024 9:40 AM CDT Emergency [facility] Emergency Department [address] [place] [id number] Discharge Disposition: Discharge to a critical access hospital Social History Tobacco Use Types Packs/Day Years Used Date Smoking Tobacco: Former Cigarettes 0.5 20 Smokeless Tobacco: Never Comments:quite 16 months ago Alcohol Use Standard Drinks/Week Comments No 0 (1 standard drink = 0.6 oz pur e alcohol) Personal Safety Answer Date Recorded Getting School Help Needed Not on file 02/14 Sex and Gender Information Value Date Recorded Sex Assigned at Not on file Legal Sex Male 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 0 10/28/2016 documented as of this encounter Discharge Disposition Disposition Code Departure Means Destination Comment s Discharge to a critical access hospital Pt staying at [facility] for end of life care documented in this encounter Miscellaneous Notes * ED Pre-Arrival Note - Reshma Ware, RN - 06/26/2024 9:26 AM CDT Pre-Arrival Note Transfer from [place] -- pt presented with abdominal pain, found to have ruptured AAA with retroperitoneal hematoma. Was hypotensive, received 2L IVF. Now 121/66 HR 100. Accepted by MD Pedroza with vascular. Report called by MD Cantu by MD Crisostomo. Coming by air. Reshma Ware RN documented in this encounter Plan of Treatment Not on file documented as of this encounter Visit Diagnoses Not on filedocumented in this encounter Care Teams Timber Cruiser Relationship Specialty Start Date End Date Papi Bradshaw NP [address] [place] [address] PCP - General Nurse Practitioner 12/10/22 documented as of this encounter
--- OUTSIDE RECORDS SUMMARY | 2024-06-27 16:09 | XMS_ITS | Referral Summary ---
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 Gender Identity Not on file Sexual [...] of Treatment Not on file Insurance MEDICARE [facility] MEDICARE [facility] Address: [address] [address] [place] [address] [facility] MEDICARE [facility] Address: [address] [address] [place] [address] [facility] Care Teams Rail Washer Relationship Specialty Start Date End Date Papi Bradshaw NP [address] [facility] [address] [place] [address] PCP - General Nurse Practitioner 12/10/22
--- OUTSIDE RECORDS SUMMARY | 2024-06-27 16:09 | XMS_ITS | Clinical Summary ---
Author Organization [facility] [address] Address [address] [place] [address] Care Team Providers Care Shredded Filler Cigar Maker Machine Name Role Phone Papi Bradshaw NP Primary Care Provider + [phone] Allergies No known active allergies Medications pravastatin [...] 12/12/2015 Abdominal aortic aneurysm without rupture 2014 Encounters Date Type Department Care Team Description 06/26/2024 - 06/26/2024 9:40 AM CDT Emergency [facility] Emergency Department [address] [place] [address] Discharge Disposition: Discharge to a critical access hospital from Last 3 Months Medical History Medical History Date Comments Hypertension [...] on file Legal Sex Male 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
[2024-06-27 16:38] VITALS: BP 105/40; PULSE 71; RESP 12; TEMP 36.2; O2SAT 76
[2024-06-27] MEDS: HYDROmorphone HCL/PF (*CRX) 50 MG in SODIUM CHLORIDE 0.9% IV 95 ML IV CONT (17:39)
--- NOTE | 2024-06-27 19:25 | PC.NURSE ---
On 06/27/24, the INSTRUCTIONAL COORDINATOR, [Christopher Staton], provided care and completed [facility] documentation on this patient. I have reviewed the INSTRUCTIONAL COORDINATOR's documentation and agree with the findings.
[2024-06-27 20:00] VITALS: BP 86/43; PULSE 63; RESP 12; TEMP 36.2; O2SAT 90
--- NOTE | 2024-06-27 21:08 | P.HP_ITS ---
H&P: HPI History of Present Illness Date/Time: 06/27/24 21:08 Chief Complaint: Uncontrolled pain Narrative: 84 y/o male presented to ED 06/26/24 with lower abdominal pain radiating to the back, nausea, diaphoresis, and syncope. CT A/P was as follows: 1. Increase in size of a now 5.8 x 4.6 cm fusiform infrarenal abdominal aortic aneurysm with aortobiiliac endoluminal stent grafting. Mild increase in size there is a large left retroperitoneal hematoma which contacts the aneurysm sac which is most consistent with rupture of the aneurysm. 2. Diverticulosis. 5 years ago he had endovascular stenting for AAA. Because he was a very poor surgical candidate due to his advanced age his family service for symptom management. Review of Systems Review of Systems: ROS unobtainable: Yes unobtainable due to medical condition PMFSH Past Medical History Medical History Abdominal aortic aneurysm Prediabetes A1c 5.5% on 05/14/2024 CKD (chronic kidney disease), stage III Hyperlipidemia Benign essential hypertension Paroxysmal atrial fibrillation Screening for colon cancer Elevated serum creatinine Surgical History Surgical History History of AAA (abdominal aortic aneurysm) repair Family History Family History Mother Family history of primary malignant neoplasm of liver Father Patient's father is Acute myocardial infarction Social History Social History (Updated 06/27/24 @ 21:13 by Maikel Levy MD) Social History: Code Status: DNR. Smoking packs per day: 1 Smoking cigarettes per day: 20.0 Years smoked: 50 Smoking pack-years: 50.00 Smoking status: Former smoker Alcohol intake: former Alcohol use details: social Substance use: never Substance use type: does not use Do You Feel Safe in your Home?: Yes Lack of Transportation: No Lack of Food: Never True Current Housing: I Have Housing Concerned About Future Housing: No Difficulty Paying Gas/Electric Bills: No Difficulty Paying for Meds: No Currently Unemployed: No Education: High School Diploma/GED Difficulty w/ Childcare or Family Care: No Spiritual care concerns: No Meds Home Medications and Allergies Home Medications Medication Instructions Recorded Confirmed Type apixaban 2.5 mg tablet (Eliquis) See Rx Instructions .Route 12/30/23 06/26/24 Rx .COMPLEX #60 tabs pravastatin 80 mg tablet See Rx Instructions .Route 04/13/24 06/26/24 Rx .COMPLEX #90 tabs cetirizine 10 mg capsule (Zyrtec) 10 mg PO DAILY 05/25/24 06/26/24 History Allergies Allergy/AdvReac Type Severity Reaction Status Date / Time No Known Allergies Allergy Verified 06/26/24 08:56 Vital Signs Vital Signs - 24 hr 06/27/24 16:38 06/27/24 18:14 06/27/24 20:00 Temperature 97.2 F L 97.2 F L Pulse Rate 71 63 Respiratory Rate 12 12 Blood Pressure 105/40 L 86/43 L Pulse Oximetry 76 L 90 Oxygen Delivery Room Air Exam Narrative: HEENT: Pharyngeal mucosa pink and intact NECK: No JVD CHEST: Clear to auscultation. Normal effort HEART: NL S1/S2, regular, no murmur ABDOMEN: BS hypoactive, protuberant bu soft, nontender, no mass, no bruits EXTREMITIES: No cyanosis, edema, or clubbing NEUROLOGIC: CN intact and symmetric to inspection MUSCULOSKELETAL: No gross deformity to visual inspection PSYCH: Unresponsive to verbal or tactile stimuli Assessment and Plan Assessment and plan (1) Hospice care: Code(s): Z51.5 - Encounter for palliative care Status: Acute Assessment and Plan: * Meets inpatient hospice criteria due to requiring continuous IV hydromorphone for control of pain * P.r.n. palliative regimen ordered * 06/27/2024 discussed care and prognosis with spouse and son at bedside (2) Abdominal aneurysm, ruptured: Qualifiers: Abdominal aorta location: infrarenal aorta Qualified Code(s): I71.33 - Infrarenal abdominal aortic aneurysm, ruptured Code(s): I71.30 - Abdominal aortic aneurysm, ruptured, unspecified Status: Acute (3) Benign essential hypertension: Code(s): I10 - Essential (primary) hypertension Status: Acute (4) Prediabetes: Code(s): R73.03 - Prediabetes Status: Acute (5) CKD (chronic kidney disease), stage III: Code(s): N18.30 - Chronic kidney disease, stage 3 unspecified Status: Acute
[2024-06-28 08:00] VITALS: BP 69/39; PULSE 67; RESP 12; TEMP 36.9; O2SAT 83
[2024-06-28] MEDS: ARTIFICIAL TEARS OPHTH SOLN 15 ML BOTTLE 1 DROP EACH EYE ×2 (08:46→21:21)
[2024-06-28] MEDS: diazePAM INJ (*CRX) 10 MG/2 ML SYRINGE 5 MG IV PUSH (08:46)
[2024-06-28] MEDS: HYDROmorphone HCL/PF (*CRX) 50 MG in SODIUM CHLORIDE 0.9% IV 95 ML IV CONT (16:05)
--- NOTE | 2024-06-28 16:32 | P.PNIM_ITS ---
Progress Note: A&P Assessment and Plan (1) Hospice care: Code(s): Z51.5 - Encounter for palliative care Status: Acute Assessment and Plan: * Meets inpatient hospice criteria due to requiring continuous IV hydromorphone for control of pain * P.r.n. palliative regimen ordered * 06/27/2024 discussed care and prognosis with spouse and son at bedside * 06/28/2024 Rapidly declining with BP 60's, O2 sat 80's, too unstable to transfer. (2) Abdominal aneurysm, ruptured: Qualifiers: Abdominal aorta location: infrarenal aorta Qualified Code(s): I71.33 - Infrarenal abdominal aortic aneurysm, ruptured Code(s): I71.30 - Abdominal aortic aneurysm, ruptured, unspecified Status: Acute (3) Benign essential hypertension: Code(s): I10 - Essential (primary) hypertension Status: Acute (4) Prediabetes: Code(s): R73.03 - Prediabetes Status: Acute (5) CKD (chronic kidney disease), stage III: Code(s): N18.30 - Chronic kidney disease, stage 3 unspecified Status: Acute Subjective Date/time seen: 06/28/24 16:32 Interval history: Remains comfortable. Review of Systems Review of Systems: ROS unobtainable: Yes unobtainable due to medical condition Exam Narrative: HEENT: Pharyngeal mucosa pink and intact NECK: No JVD CHEST: Clear to auscultation. Normal effort HEART: NL S1/S2, regular, no murmur ABDOMEN: BS hypoactive, protuberant bu soft, nontender, no mass, no bruits EXTREMITIES: No cyanosis, edema, or clubbing NEUROLOGIC: CN intact and symmetric to inspection MUSCULOSKELETAL: No gross deformity to visual inspection PSYCH: Unresponsive to verbal or tactile stimuli Objective Data Vital Signs Vital Signs: Vital Signs - 24 hr 06/27/24 16:38 06/27/24 18:14 06/27/24 20:00 Temperature 97.2 F L 97.2 F L Pulse Rate 71 63 Respiratory Rate 12 12 Blood Pressure 105/40 L 86/43 L Pulse Oximetry 76 L 90 Oxygen Delivery Room Air 06/28/24 08:00 06/28/24 08:00 Temperature 98.5 F Pulse Rate 67 Respiratory Rate 12 Blood Pressure 69/39 L Pulse Oximetry 83 L Oxygen Delivery Room Air Intake/Output Intake/Output: Intake & Output 06/25/24 06/26/24 06/27/24 06/28/24 23:59 23:59 23:59 23:59 Intake Total 22.4 Output Total 0 Balance 22.4 Meds/Results Medications: Active Medications Generic Name Dose Route Start Last Admin Trade Name Freq PRN Reason Stop Dose Admin Artificial Tears 1 drop 06/27/24 16:44 Artificial Tears Ophth Soln 15 Ml Bottle EACH EYE PRN PRN Dry Eye(s) Artificial Tears 1 drop 06/27/24 21:00 06/28/24 08:46 Artificial Tears Ophth Soln 15 Ml Bottle EACH EYE 1 drop Q12HR BRADY Administration Bisacodyl 10 mg 06/27/24 16:45 Bisacodyl 10 Mg Suppository RECTAL DAILY PRN Constipation Diazepam 5 mg 06/27/24 16:47 06/28/24 08:46 Diazepam Inj (*Crx) 10 Mg/2 Ml Syringe IV PUSH 5 mg Q4H PRN Administration ANXIETY/RESTLESSNESS Glycopyrrolate 0.1 mg 06/27/24 16:45 Glycopyrrolate Inj (*Sp) 0.2 Mg/Ml Vial IV PUSH Q4H PRN increased secretions Hydromorphone HCl 0.5 mg 06/27/24 16:47 Hydromorphone Hcl Inj (*Crx) 2 Mg/Ml Vial IV PUSH Q2H PRN PAIN/SOB Hydromorphone HCl 50 mg/ 100 mls @ 1 mls/hr 06/27/24 17:20 06/28/24 16:05 Sodium Chloride IV CONT 0.5 mg/hr .Q24H BRADY 1 mls/hr Administration 0.5 MG/HR Prochlorperazine Edisylate 10 mg 06/27/24 16:44 Prochlorperazine Edisylate 10 Mg/2 Ml Vial IV PUSH Q4H PRN Nausea And Vomiting
[2024-06-28 20:00] VITALS: BP 75/41; PULSE 88; RESP 9; TEMP 36.8; O2SAT 70
[2024-06-28 20:10] VITALS: PULSE 67; RESP 12; O2SAT 83
[2024-06-29 07:46] VITALS: BP 102/47; PULSE 73; RESP 16; TEMP 36.4; O2SAT 83
[2024-06-29] MEDS: ARTIFICIAL TEARS OPHTH SOLN 15 ML BOTTLE 1 DROP EACH EYE ×2 (10:33→20:46)
--- NOTE | 2024-06-29 17:30 | P.PNIM_ITS ---
Progress Note: A&P Assessment and Plan (1) Hospice care: Code(s): Z51.5 - Encounter for palliative care Status: Acute Assessment and Plan: * Meets inpatient hospice criteria due to requiring continuous IV hydromorphone for control of pain * P.r.n. palliative regimen ordered * 06/27/2024 discussed care and prognosis with spouse and son at bedside * 06/28/2024 Rapidly declining with BP 60's, O2 sat 80's, too unstable to transfer. * 06/29/2024 BP fluctuating, remains hypoxic, remains too unstable for transfer. (2) Abdominal aneurysm, ruptured: Qualifiers: Abdominal aorta location: infrarenal aorta Qualified Code(s): I71.33 - Infrarenal abdominal aortic aneurysm, ruptured Code(s): I71.30 - Abdominal aortic aneurysm, ruptured, unspecified Status: Acute (3) Benign essential hypertension: Code(s): I10 - Essential (primary) hypertension Status: Acute (4) Prediabetes: Code(s): R73.03 - Prediabetes Status: Acute (5) CKD (chronic kidney disease), stage III: Code(s): N18.30 - Chronic kidney disease, stage 3 unspecified Status: Acute Subjective Date/time seen: 06/29/24 17:30 Interval history: Remains comfortable on current regimen. Review of Systems Review of Systems: ROS unobtainable: Yes unobtainable due to medical condition Exam Narrative: HEENT: Pharyngeal mucosa pink and intact NECK: No JVD CHEST: Clear to auscultation. Normal effort HEART: NL S1/S2, regular, no murmur ABDOMEN: BS hypoactive, protuberant bu soft, nontender, no mass, no bruits EXTREMITIES: No cyanosis, edema, or clubbing NEUROLOGIC: CN intact and symmetric to inspection MUSCULOSKELETAL: No gross deformity to visual inspection PSYCH: Unresponsive to verbal or tactile stimuli Objective Data Vital Signs Vital Signs: Vital Signs - 24 hr 06/28/24 20:00 06/28/24 20:10 06/29/24 07:15 Temperature 98.2 F Pulse Rate 88 67 Respiratory Rate 9 L 12 Blood Pressure 75/41 L Pulse Oximetry 70 L 83 L Oxygen Delivery Room Air Room Air 06/29/24 07:46 Temperature 97.6 F Pulse Rate 73 Respiratory Rate 16 Blood Pressure 102/47 L Pulse Oximetry 83 L Oxygen Delivery Intake/Output Intake/Output: Intake & Output 06/26/24 06/27/24 06/28/24 06/29/24 23:59 23:59 23:59 23:59 Intake Total 22.4 0 Output Total 0 Balance 22.4 0 Meds/Results Medications: Active Medications Generic Name Dose Route Start Last Admin Trade Name Freq PRN Reason Stop Dose Admin Artificial Tears 1 drop 06/27/24 16:44 Artificial Tears Ophth Soln 15 Ml Bottle EACH EYE PRN PRN Dry Eye(s) Artificial Tears 1 drop 06/27/24 21:00 06/29/24 10:33 Artificial Tears Ophth Soln 15 Ml Bottle EACH EYE 1 drop Q12HR BRADY Administration Bisacodyl 10 mg 06/27/24 16:45 Bisacodyl 10 Mg Suppository RECTAL DAILY PRN Constipation Diazepam 5 mg 06/27/24 16:47 06/28/24 08:46 Diazepam Inj (*Crx) 10 Mg/2 Ml Syringe IV PUSH 5 mg Q4H PRN Administration ANXIETY/RESTLESSNESS Glycopyrrolate 0.1 mg 06/27/24 16:45 Glycopyrrolate Inj (*Sp) 0.2 Mg/Ml Vial IV PUSH Q4H PRN increased secretions Hydromorphone HCl 0.5 mg 06/27/24 16:47 Hydromorphone Hcl Inj (*Crx) 2 Mg/Ml Vial IV PUSH Q2H PRN PAIN/SOB Hydromorphone HCl 50 mg/ 100 mls @ 1 mls/hr 06/27/24 17:20 06/28/24 16:05 Sodium Chloride IV CONT 0.5 mg/hr .Q24H BRADY 1 mls/hr Administration 0.5 MG/HR Prochlorperazine Edisylate 10 mg 06/27/24 16:44 Prochlorperazine Edisylate 10 Mg/2 Ml Vial IV PUSH Q4H PRN Nausea And Vomiting
[2024-06-29 20:00] VITALS: BP 109/41; PULSE 83; RESP 18; TEMP 35.8; O2SAT 82
[2024-06-30 08:00] VITALS: BP 92/70; PULSE 85; RESP 19; TEMP 36.8; O2SAT 83
[2024-06-30] MEDS: ARTIFICIAL TEARS OPHTH SOLN 15 ML BOTTLE 1 DROP EACH EYE (08:34)
[2024-06-30] MEDS: HYDROmorphone HCL/PF (*CRX) 50 MG in SODIUM CHLORIDE 0.9% IV 95 ML IV CONT (10:49)
--- NOTE | 2024-06-30 17:20 | P.PNIM_ITS ---
Progress Note: A&P Assessment and Plan (1) Hospice care: Code(s): Z51.5 - Encounter for palliative care Status: Acute Assessment and Plan: * Meets inpatient hospice criteria due to requiring continuous IV hydromorphone for control of pain * P.r.n. palliative regimen ordered * 06/27/2024 discussed care and prognosis with spouse and son at bedside * 06/28/2024 Rapidly declining with BP 60's, O2 sat 80's, too unstable to transfer. * 06/29/2024 BP fluctuating, remains hypoxic, remains too unstable for transfer. * 06/30/2024 Remains hypoxic and hypotensive and too unstable to transfer. Signs of progression with coarsening of breath sounds. Care and prognosis discussed with family at bedside. (2) Abdominal aneurysm, ruptured: Qualifiers: Abdominal aorta location: infrarenal aorta Qualified Code(s): I71.33 - Infrarenal abdominal aortic aneurysm, ruptured Code(s): I71.30 - Abdominal aortic aneurysm, ruptured, unspecified Status: Acute (3) Benign essential hypertension: Code(s): I10 - Essential (primary) hypertension Status: Acute (4) Prediabetes: Code(s): R73.03 - Prediabetes Status: Acute (5) CKD (chronic kidney disease), stage III: Code(s): N18.30 - Chronic kidney disease, stage 3 unspecified Status: Acute Subjective Date/time seen: 06/30/24 17:20 Interval history: Remains comfortable on current regimen family had questions earlier today regarding his prognosis. All questions were answered to their satisfaction. Review of Systems Review of Systems: ROS unobtainable: Yes unobtainable due to medical condition Exam Narrative: HEENT: Pharyngeal mucosa pink and intact NECK: No JVD CHEST: Coarse BS. Normal effort HEART: NL S1/S2, regular, no murmur ABDOMEN: BS hypoactive, protuberant bu soft, nontender, no mass, no bruits EXTREMITIES: No cyanosis, edema, or clubbing NEUROLOGIC: CN intact and symmetric to inspection MUSCULOSKELETAL: No gross deformity to visual inspection PSYCH: Unresponsive to verbal or tactile stimuli Objective Data Vital Signs Vital Signs: Vital Signs - 24 hr 06/29/24 20:00 06/29/24 20:00 06/30/24 08:00 Temperature 96.4 F L 98.2 F Pulse Rate 83 83 85 Respiratory Rate 18 18 19 Blood Pressure 109/41 L 92/70 L Pulse Oximetry 82 L 82 L 83 L Oxygen Delivery Room Air Intake/Output Intake/Output: Intake & Output 06/27/24 06/28/24 06/29/24 06/30/24 23:59 23:59 23:59 23:59 Intake Total 22.4 0 30 Output Total 0 200 0 Balance 22.4 -200 30 Meds/Results Medications: Active Medications Generic Name Dose Route Start Last Admin Trade Name Freq PRN Reason Stop Dose Admin Artificial Tears 1 drop 06/27/24 16:44 Artificial Tears Ophth Soln 15 Ml Bottle EACH EYE PRN PRN Dry Eye(s) Artificial Tears 1 drop 06/27/24 21:00 06/30/24 08:34 Artificial Tears Ophth Soln 15 Ml Bottle EACH EYE 1 drop Q12HR BRADY Administration Bisacodyl 10 mg 06/27/24 16:45 Bisacodyl 10 Mg Suppository RECTAL DAILY PRN Constipation Diazepam 5 mg 06/27/24 16:47 06/28/24 08:46 Diazepam Inj (*Crx) 10 Mg/2 Ml Syringe IV PUSH 5 mg Q4H PRN Administration ANXIETY/RESTLESSNESS Glycopyrrolate 0.1 mg 06/27/24 16:45 Glycopyrrolate Inj (*Sp) 0.2 Mg/Ml Vial IV PUSH Q4H PRN increased secretions Hydromorphone HCl 0.5 mg 06/27/24 16:47 Hydromorphone Hcl Inj (*Crx) 2 Mg/Ml Vial IV PUSH Q2H PRN PAIN/SOB Hydromorphone HCl 50 mg/ 100 mls @ 1 mls/hr 06/27/24 17:20 06/30/24 10:49 Sodium Chloride IV CONT 0.5 mg/hr .Q24H BRADY 1 mls/hr Administration 0.5 MG/HR Prochlorperazine Edisylate 10 mg 06/27/24 16:44 Prochlorperazine Edisylate 10 Mg/2 Ml Vial IV PUSH Q4H PRN Nausea And Vomiting
[2024-06-30 20:00] VITALS: BP 104/43; PULSE 87; RESP 24; TEMP 37; O2SAT 83
--- NOTE | 2024-07-01 18:28 | PM.DDS ---
Discharge Summary Date and Time Date of : 07/01/24 Time of : 00:48 Provider Pronounced By: 2 RNs Name of First RN That Pronounced: Iqra Name of Second RN That Pronounced: Kiran Probable Cause of Probable Cause of : Ruptured Abdominal Aortic Aneurysm Summary Hospital Course: Admitted to inpatient hospice service for symptom management, uncontrolled pain. Medications were titrated to comfort. Mr. Hitchcock peacefully. Additional Data Confirmation of as documented by pronouncing clinician: Pupillary Reflex, Palpable Pulses, Response to Stimuli, Heart Tones and Breath Sounds Name of Provider Notified: Cam Time Provider Notified: 01:22 Provider Relations Rep Notified: Yes Date [facility] Notified of : 07/01/24 Time [facility] Notified of : 01:09
== END 2024-07-01 00:48 | disposition expired | DRG 951 ==
PROVIDERS: Admitting Provider Internal Medicine; PCP Nurse Practitioner; Visit Provider Internal Medicine
DX: Z51.5 Encounter for palliative care (principal); I71.33 Infrarenal abdominal aortic aneurysm, ruptured; I12.9 Hypertensive chronic kidney disease with stage 1 through stage 4 chronic kidney disease, or unspecified chronic kidney disease; N18.30 Chronic kidney disease, stage 3 unspecified; R73.03 Prediabetes; E78.5 Hyperlipidemia, unspecified; I48.0 Paroxysmal atrial fibrillation; Z87.891 Personal history of nicotine dependence
CPT/HCPCS: A9270; J1171; J3360